=== PATIENT | female | born 1945 | race Caucasian/White ===

== ENCOUNTER 2017-01-10 22:38 | Emergency (ER) | payer BC, MEDICARE ==
[~2017-01-10] VITALS: Ht 167.6 cm; Wt 67.1 kg
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
--- NOTE | 2017-01-10 22:50 | NUR ---
ZHENG MURILLO DO AT BED SIDE FOR EVAL
[2017-01-10 23:17] LABS: BASOPHILS # (AUTO) 0.1 /CMM (0.0-0.2); BASOPHILS % (AUTO) 0.9 % (0.0-2.0); EOSINOPHILS # (AUTO) 0.2 /CMM (0.0-0.7); EOSINOPHILS % (AUTO) 2.7 % (0.0-6.0); HEMATOCRIT 38 % (33-45); HEMOGLOBIN 12.6 g/dL (11.5-14.8); LYMPHOCYTES # (AUTO) 2.2 /CMM (0.8-4.8); LYMPHOCYTES % (AUTO) 30.1 % (20.0-44.0); MEAN CORPUSCULAR HEMOGLOBIN 29 PG (26.0-33.0); MEAN CORPUSCULAR HGB CONC 33 g/dl (31.0-36.0); MEAN CORPUSCULAR VOLUME 89 fL (82-100); MONOCYTES # (AUTO) 0.7 /CMM (0.1-1.30); MONOCYTES % (AUTO) 9.8 % (2.0-12.0); NEUTROPHILS # (AUTO) 4.1 /CMM (1.8-8.9); NEUTROPHILS % (AUTO) 56.5 % (43.0-81.0); PLATELET COUNT (AUTO) 344 /CMM (150-450); RDW COEFFICIENT OF VARIATION 15.8 (11.5-15.0); RED BLOOD CELL COUNT(AUTO) 4.31 MIL/uL (4.0-5.2); WHITE BLOOD COUNT (AUTO) 7.2 K/uL (4.3-11.0)
[2017-01-10 23:26] LABS: CALCIUM, SERUM 8.6 mg/dL (8.5-10.1); CARBON DIOXIDE 30 mmol/L (21-32); CHLORIDE 104 mmol/L (98-107); CREATININE 0.7 mg/dL (0.6-1.3); GLUCOSE 108 mg/dL (74-106); SODIUM SERUM 139 mmol/L (136-145); UREA NITROGEN, BLOOD 16 mg/dL (7-18)
[2017-01-10 23:29] LABS: INR 0.95 (0.87-1.13); PROTHROMBIN TIME 10.1 SECS (9.5-12.7)
[2017-01-10 23:33] LABS: TROPONIN I < 0.017 ng/mL (0.00-0.056)
[2017-01-11 00:10] VITALS: BP 129/96
--- NOTE | 2017-01-11 00:11 | NUR ---
Patient discharged to home in stable condition. Written and verbal after care instructions given. Patient verbalizes understanding of instruction.IV removed. Catheter intact and site benign. Pressure and 4x4 applied to site. No bleeding noted. PT ambulatory with a steady gait VITAL SIGNS WITHIN NORMAL LIMITS.
== END 2017-01-11 00:11 | disposition home or self-care (01) ==
LOC: ER 22:40
DX: R20.9 Unspecified disturbances of skin sensation (principal); R53.1 Weakness; G25.81 Restless legs syndrome; M79.7 Fibromyalgia; Z88.5 Allergy status to narcotic agent
CPT/HCPCS: 36415; 71010; 80048; 84484; 85025; 85730; 93005; 99285; A4606; Z7610

== ENCOUNTER 2022-11-21 15:14 | Emergency (ER) | payer MEDICARE ==
[~2022-11-21] VITALS: Ht 167.6 cm; Wt 57.2 kg
--- NOTE | 2022-11-21 15:46 | NUR ---
The patient is presented to ER for L flank pain x 5 days s/p fall, states got dizzy standing up. no loc. Rates pain 7/10. In room air and denies SOB. Respiration regular and unlabored. The patient is attached to the monitor. Warm blanket provided for comfort. Will continue to monitor the patient.
[2022-11-21] MEDS ORDERED: IV NS 0.9% 1,000 ML BAG IV ONE (16:00)
[2022-11-21 16:27] LABS: BASOPHILS % (AUTO) 0.8 % (0.0-2.0); EOSINOPHILS % (AUTO) 3.6 % (0.0-6.0); HEMATOCRIT 43 % (33-45); LYMPHOCYTES # (AUTO) 1.3 K/uL (0.8-4.8); LYMPHOCYTES % (AUTO) 25.4 % (20.0-44.0); MEAN CORPUSCULAR HGB CONC 32 g/dl (31.0-36.0); MEAN CORPUSCULAR VOLUME 93 fL (82-100); MONOCYTES # (AUTO) 0.5 K/uL (0.1-1.30); MONOCYTES % (AUTO) 10.8 % (2.0-12.0); NEUTROPHILS % (AUTO) 59.4 % (43.0-81.0); PLATELET COUNT (AUTO) 342 K/uL (150-450); RED BLOOD CELL COUNT(AUTO) 4.64 MIL/uL (4.0-5.2); WHITE BLOOD COUNT (AUTO) 5.1 K/uL (4.3-11.0)
[2022-11-21 16:38] LABS: CALCIUM, SERUM 9.7 mg/dL (8.5-10.1); CARBON DIOXIDE 31 mmol/L (21-32); CHLORIDE 105 mmol/L (98-107); CREATININE 0.7 mg/dL (0.6-1.3); GLUCOSE 102 mg/dL (74-106); POTASSIUM 4.1 mmol/L (3.5-5.1); SODIUM SERUM 141 mmol/L (136-145); UREA NITROGEN, BLOOD 14 mg/dL (7-18)
--- NOTE | 2022-11-21 17:17 | NUR ---
URINE SAMPLE COLLECTED AND SENT TO LAB
[2022-11-21] MEDS ORDERED: IV NS 0.9% 250 ML IV ONE (18:21)
[2022-11-21] MEDS ORDERED: IOHEXOL-300 100 ML VIAL IV ONE (18:21)
[2022-11-21] MEDS ORDERED: CT SWABBABLE VALVE TRANS SET 1 EA INFUS.SET MC ONE (18:21)
[2022-11-21] MEDS ORDERED: LIDO30AD10 TP (20:33)
[2022-11-21 21:01] VITALS: BP 131/89
--- NOTE | 2022-11-21 21:02 | NUR ---
Patient discharged to home in stable condition. Written and verbal after care instructions given. Patient verbalizes understanding of instruction.IV removed. Catheter intact and site benign. Pressure and 4x4 applied to site. No bleeding noted.
== END 2022-11-21 21:02 | disposition home or self-care (01) ==
LOC: ER 15:19
DX: S20.212A Contusion of left front wall of thorax, initial encounter (principal); R42 Dizziness and giddiness; G93.89 Other specified disorders of brain; W18.30XA Fall on same level, unspecified, initial encounter; Z79.899 Other long term (current) drug therapy; Z88.5 Allergy status to narcotic agent; Z88.1 Allergy status to other antibiotic agents; Y93.89 Activity, other specified; Y92.89 Other specified places as the place of occurrence of the external cause; Y99.8 Other external cause status
CPT/HCPCS: 99285; 71260; 96360; 93005; 70450; 74177; 85025; 80048; 83735; 36415; 84484; J7030; J7050; Q9967

== ENCOUNTER 2024-07-06 19:55 | Emergency (ER) | payer MEDICARE ==
[~2024-07-06] VITALS: Ht 167.6 cm; Wt 54.4 kg
[~2024-07-06 19:55] MED LIST: LIDO30AD10 TP
[2024-07-06] MEDS ORDERED: IBUP-1957 PO (22:22)
[2024-07-06] MEDS: IBUPROFEN 400 MG TABLET PO ONE (22:50)
[2024-07-06 22:52] VITALS: BP 145/95; TEMP 98.3; O2SAT 97
== END 2024-07-06 22:45 | disposition home or self-care (01) ==
LOC: ER 20:02
DX: M48.54XA Collapsed vertebra, not elsewhere classified, thoracic region, initial encounter for fracture (principal); S39.012A Strain of muscle, fascia and tendon of lower back, initial encounter; S20.219A Contusion of unspecified front wall of thorax, initial encounter; M79.7 Fibromyalgia; G25.81 Restless legs syndrome; Z88.5 Allergy status to narcotic agent; Z79.1 Long term (current) use of non-steroidal anti-inflammatories (NSAID); V43.52XA Car driver injured in collision with other type car in traffic accident, initial encounter; Y93.89 Activity, other specified; Y92.410 Unspecified street and highway as the place of occurrence of the external cause; Y99.8 Other external cause status
CPT/HCPCS: 71045-TC; 72100-TC

== ENCOUNTER 2025-01-16 14:15 | Inpatient (IN) | payer MEDICARE, OTHER ==
[~2025-01-16] VITALS: Ht 167.6 cm; Wt 59.5 kg
[~2025-01-16 14:15] MED LIST changes: +IBUP-1957 PO
[2025-01-16] MEDS ORDERED: KETOROLAC TROMETHAMINE 15 MG/ML VIAL ONE (14:41)
[2025-01-16] MEDS ORDERED: ONDANSETRON HCL/PF 4 MG/2 ML VIAL ONE (14:41)
[2025-01-16] MEDS: IV NS 0.9% 1,000 ML BAG IV ONE (14:56)
[2025-01-16 14:57] LABS: PLATELET COUNT (AUTO) 427 K/uL (150-450); RED BLOOD CELL COUNT(AUTO) 4.63 MIL/uL (4.0-5.2); RED CELL DISTRIBUTION WIDTH 15.3 % (11.5-15.0); WHITE BLOOD COUNT (AUTO) 8.8 K/uL (4.3-11.0)
[2025-01-16] MEDS: KETOROLAC TROMETHAMINE 15 MG/ML VIAL IV ONE (14:57)
[2025-01-16] MEDS: ONDANSETRON HCL/PF 4 MG/2 ML VIAL IVP ONE (14:58)
[2025-01-16 15:09] LABS: ASPARTATE AMINOTRANSFERASE 12.0 U/L (15-37); CALCIUM, SERUM 9.1 mg/dL (8.5-10.1); CREATININE 0.8 mg/dL (0.6-1.3); SODIUM SERUM 133.0 mmol/L (136-145); TOTAL PROTEIN, SERUM 6.8 g/dL (6.4-8.2); UREA NITROGEN, BLOOD 14.0 mg/dL (7-18)
[2025-01-16 15:10] LABS: INR 1.04 (0.91-1.10)
[2025-01-16 15:11] LABS: APPEARANCE,URINE CLEAR (CLEAR); BLOOD, URINE NEGATIVE Ery/uL (NEGATIVE); LEUKOCYTE ESTERASE ,URINE 1+ (NEGATIVE); NITRITE, URINE NEGATIVE (NEGATIVE); UGLUCOSE NEGATIVE (NEGATIVE)
[2025-01-16] MEDS ORDERED: IV NS 0.9% 250 ML IV ONE (15:15)
[2025-01-16] MEDS ORDERED: IOHEXOL-300 100 ML VIAL IV ONE (15:15)
[2025-01-16 15:16] LABS: SQUAMOUS EPITHELIAL CELL,UR Many /HPF (None Seen)
[2025-01-16 15:18] LABS: ADD URINE CULTURE YES
[2025-01-16] MEDS: CEFTRIAXONE 1GM BAG (ER ONLY) 1 GM/50 ML PIGGYBACK IV ONE (16:00)
[2025-01-16] MEDS ORDERED: CEFTRIAXONE 1GM BAG (ER ONLY) 50 ML IV ONE (16:53)
[2025-01-16 19:50] VITALS: BP 105/92; TEMP 97.3; O2SAT 100
[2025-01-16] MEDS ORDERED: MORPHINE SULFATE INJ 2 MG/ML DISP.SYRIN IV PRN (20:30)
[2025-01-16] MEDS ORDERED: MAGNESIUM HYDROXIDE 30 ML UDC PO PRN (20:30)
[2025-01-17] MEDS: IV NS 0.9% 1,000 ML IV PRN (01:17)
[2025-01-17] MEDS: KETOROLAC TROMETHAMINE 15 MG/ML VIAL IV ONE (05:57)
[2025-01-17 06:44] LABS: PLATELET COUNT (AUTO) 359 K/uL (150-450); RED BLOOD CELL COUNT(AUTO) 3.71 MIL/uL (4.0-5.2); RED CELL DISTRIBUTION WIDTH 14.6 % (11.5-15.0); WHITE BLOOD COUNT (AUTO) 7.2 K/uL (4.3-11.0)
[2025-01-17 07:17] LABS: CALCIUM, SERUM 8.3 mg/dL (8.5-10.1); CREATININE 0.7 mg/dL (0.6-1.3); PHOSPHORUS 3.5 mg/dL (2.5-4.9); SODIUM SERUM 136.0 mmol/L (136-145); UREA NITROGEN, BLOOD 9.0 mg/dL (7-18)
[2025-01-17 08:00] VITALS: BP 97/52; TEMP 97.7; O2SAT 95
[2025-01-17] MEDS: KETOROLAC TROMETHAMINE INJ 30 MG/ML VIAL IM PRN (14:21)
[2025-01-17 16:00] VITALS: BP 112/52; TEMP 97.5; O2SAT 96
[2025-01-17] MEDS: PEG 3350/NA SULF,BICARB,CL/KCL 4,000 ML BOTTLE PO ONE (17:57)
[2025-01-17 18:12] LABS: OCCULT BLOOD STOOL NEGATIVE (NEGATIVE)
[2025-01-17 20:00] VITALS: BP 130/54; TEMP 97.5; O2SAT 99
[2025-01-17 20:24] LABS: IRON, SERUM 18.0 ug/dl (50-175)
[2025-01-18 06:49] LABS: PLATELET COUNT (AUTO) 374 K/uL (150-450); RED BLOOD CELL COUNT(AUTO) 3.80 MIL/uL (4.0-5.2); RED CELL DISTRIBUTION WIDTH 14.9 % (11.5-15.0); WHITE BLOOD COUNT (AUTO) 5.3 K/uL (4.3-11.0)
[2025-01-18 07:00] VITALS: BP 106/69; TEMP 97.5; O2SAT 100
[2025-01-18] MEDS: ACETAMINOPHEN 325 MG TABLET PO PRN (08:32)
[2025-01-18 10:41] VITALS: BP 106/69; TEMP 97.5; O2SAT 100
[2025-01-18] MEDS ORDERED: ANESTHESIA TRAY IN PYXIS 1 EA TRAY MC ONE (15:12)
[2025-01-18 16:00] VITALS: BP 120/63; TEMP 97.3; O2SAT 95
[2025-01-18 20:46] VITALS: BP 125/55; TEMP 97.5; O2SAT 95
[2025-01-19 06:12] LABS: FOLIC ACID 4.2 ng/mL (>3.0); FREE KAPPA LT CHAINS SERUM 30.6 mg/L (3.3-19.4); FREE LAMBDA LT CHAIN SERUM 23.9 mg/L (5.7-26.3); IMMUNOGLOBULIN A, SERUM 202 mg/dL (64-422); IMMUNOGLOBULIN M, SERUM 45 mg/dL (26-217); KAPPA/LAMBDA RATIO SERUM 1.28 (0.26-1.65)
[2025-01-19 06:39] LABS: PLATELET COUNT (AUTO) 400 K/uL (150-450); RED BLOOD CELL COUNT(AUTO) 3.83 MIL/uL (4.0-5.2); RED CELL DISTRIBUTION WIDTH 14.4 % (11.5-15.0); WHITE BLOOD COUNT (AUTO) 5.9 K/uL (4.3-11.0)
[2025-01-19 07:07] LABS: CARCINOEMBRYONIC ANTIGEN (CEA) 3.3 ng/mL (0.0-4.7)
[2025-01-19 07:49] LABS: CALCIUM, SERUM 8.5 mg/dL (8.5-10.1); CREATININE 0.5 mg/dL (0.6-1.3); SODIUM SERUM 139.0 mmol/L (136-145); UREA NITROGEN, BLOOD 5.0 mg/dL (7-18)
[2025-01-19 08:00] VITALS: BP 110/56; TEMP 98.6; O2SAT 96
[2025-01-19] MEDS ORDERED: IOHEXOL-300 100 ML VIAL IV ONE (11:45)
[2025-01-19] MEDS ORDERED: CT SWABBABLE VALVE TRANS SET 1 EA INFUS.SET MC ONE (11:45)
[2025-01-19] MEDS ORDERED: IV NS 0.9% 250 ML IV ONE (11:45)
[2025-01-19] MEDS: KETOROLAC TROMETHAMINE INJ 30 MG/ML VIAL IV PRN (13:43)
[2025-01-19] MEDS: SOD FERRIC GLUC 125 MG in IV NS 0.9% 100 ML IV SCH (14:32)
[2025-01-19 16:00] VITALS: BP 119/54; TEMP 97.9; O2SAT 96
[2025-01-19 20:00] VITALS: BP 124/63; TEMP 98.1; O2SAT 97
[2025-01-20 07:09] LABS: *SPE A/G RATIO 0.9 (0.7-1.7); *SPE ALBUMIN 2.5 g/dL (2.9-4.4); *SPE ALPHA-1-GLOBULIN 0.4 g/dL (0.0-0.4); *SPE ALPHA-2-GLOBULIN 1.0 g/dL (0.4-1.0); *SPE BETA GLOBULIN 0.9 g/dL (0.7-1.3); *SPE GLOBULIN, TOTAL 2.7 g/dL (2.2-3.9); *SPE M-SPIKE Not Observed g/dL (Not Observed); *SPE PROTEIN TOTAL 5.2 g/dL (6.0-8.5); *SPEGAMMA GLOBULIN 0.5 g/dL (0.4-1.8)
[2025-01-20 07:36] LABS: PLATELET COUNT (AUTO) 408 K/uL (150-450); RED BLOOD CELL COUNT(AUTO) 4.31 MIL/uL (4.0-5.2); RED CELL DISTRIBUTION WIDTH 14.7 % (11.5-15.0); WHITE BLOOD COUNT (AUTO) 5.4 K/uL (4.3-11.0)
[2025-01-20 07:51] LABS: CALCIUM, SERUM 8.6 mg/dL (8.5-10.1); CREATININE 0.7 mg/dL (0.6-1.3); SODIUM SERUM 140.0 mmol/L (136-145); UREA NITROGEN, BLOOD 4.0 mg/dL (7-18)
[2025-01-20 08:00] VITALS: BP 113/67; TEMP 98.1; O2SAT 98
[2025-01-20 16:00] VITALS: BP 121/71; TEMP 98.2; O2SAT 99
[2025-01-20 20:00] VITALS: BP 133/61; TEMP 98.4; O2SAT 95
[2025-01-21 07:51] LABS: PLATELET COUNT (AUTO) 385 K/uL (150-450); RED BLOOD CELL COUNT(AUTO) 3.89 MIL/uL (4.0-5.2); RED CELL DISTRIBUTION WIDTH 14.8 % (11.5-15.0); WHITE BLOOD COUNT (AUTO) 6.2 K/uL (4.3-11.0)
[2025-01-21 07:52] LABS: INR 1.08 (0.91-1.10)
[2025-01-21 08:00] VITALS: BP 132/66; TEMP 98.1; O2SAT 94
[2025-01-21] MEDS ORDERED: FENTANYL PF 250MCG/5ML AMPUL ONE (08:16)
[2025-01-21] MEDS ORDERED: ROCURONIUM BROMIDE 50 MG/5 ML ONE (08:16)
[2025-01-21] MEDS ORDERED: SUCCINYLCHOLINE CHLORIDE 20 MG/ML VIAL ONE (08:17)
[2025-01-21] MEDS ORDERED: ROPIVACAINE HCL 0.5% 5 MG/ML 30ML VIAL ONE (08:20)
[2025-01-21 09:01] LABS: CALCIUM, SERUM 8.5 mg/dL (8.5-10.1); CREATININE 0.7 mg/dL (0.6-1.3); PHOSPHORUS 3.1 mg/dL (2.5-4.9); SODIUM SERUM 143.0 mmol/L (136-145); UREA NITROGEN, BLOOD 4.0 mg/dL (7-18)
[2025-01-21] MEDS: ZOSYN IVPB 3.375 G in IV D5W 50ml IV ONE (10:00)
[2025-01-21] MEDS ORDERED: METOCLOPRAMIDE HCL 10 MG/2 ML VIAL IV PRN (11:00)
[2025-01-21] MEDS ORDERED: MEPERIDINE HCL/PF 50 MG/ML DISP.SYRIN IV PRN (11:00)
[2025-01-21] MEDS ORDERED: HYDROMORPHONE INJ 2 MG/ML DISP.SYRIN ONE (11:48)
[2025-01-21] MEDS ORDERED: ONDANSETRON HCL/PF 4 MG/2 ML VIAL IV PRN (12:00)
[2025-01-21] MEDS ORDERED: HYDROMORPHONE 1 MG/1 ML DISP.SYRIN IV PRN (12:00)
[2025-01-21] MEDS ORDERED: MEPERIDINE25 MG SYR 25 MG/ML VIAL ONE (12:15)
[2025-01-21] MEDS ORDERED: FENTANYL PF 100MCG/2ML AMPUL IV PRN (12:30)
[2025-01-21] MEDS ORDERED: ANESTHESIA TRAY IN PYXIS 1 EA TRAY MC ONE (13:04)
[2025-01-21] MEDS: LIDOCAINE 5% (PATCH) 1 EA PATCH TP SCH (14:19)
[2025-01-21 16:00] VITALS: BP 103/52; TEMP 98.4; O2SAT 97
[2025-01-21] MEDS: METHOCARBAMOL (500MG) 500 MG TABLET PO SCH (18:05)
[2025-01-21] MEDS: IV D5/ 0.9% NACL 1,000 ML IV PRN (19:39)
[2025-01-21 20:00] VITALS: BP_SYST 105; BP_SYST 143; BP_DIAS 64; BP_DIAS 71; TEMP 97.5; TEMP 98.1; O2SAT 98
[2025-01-21 20:43] VITALS: BP 105/64; TEMP 97.5; O2SAT 98
[2025-01-22] MEDS: HYDROMORPHONE INJ 2 MG/ML DISP.SYRIN IV PRN (03:17)
[2025-01-22 08:12] VITALS: BP 104/48; TEMP 97.5; O2SAT 100
[2025-01-22 08:27] LABS: PLATELET COUNT (AUTO) 427 K/uL (150-450); RED BLOOD CELL COUNT(AUTO) 4.45 MIL/uL (4.0-5.2); RED CELL DISTRIBUTION WIDTH 15.3 % (11.5-15.0); WHITE BLOOD COUNT (AUTO) 13.0 K/uL (4.3-11.0)
[2025-01-22] MEDS: CLOTRIMAZOLE 1% 15 GM TUBE TP SCH (10:27)
[2025-01-22 10:35] LABS: CALCIUM, SERUM 8.4 mg/dL (8.5-10.1); CREATININE 0.9 mg/dL (0.6-1.3); PHOSPHORUS 3.2 mg/dL (2.5-4.9); SODIUM SERUM 142.0 mmol/L (136-145); UREA NITROGEN, BLOOD 5.0 mg/dL (7-18)
[2025-01-22 16:15] VITALS: BP 142/68; TEMP 99.5; O2SAT 100
[2025-01-22] MEDS: ENOXAPARIN SODIUM 40 MG/0.4 ML DISP.SYRIN SQ SCH (20:00)
[2025-01-22 20:11] VITALS: BP 107/59; TEMP 98.2; O2SAT 98
[2025-01-22] MEDS: HYDROCODONE/APAP 10/325MG TABLET PO PRN (22:10)
[2025-01-23 06:31] LABS: PLATELET COUNT (AUTO) 388 K/uL (150-450); RED BLOOD CELL COUNT(AUTO) 3.92 MIL/uL (4.0-5.2); RED CELL DISTRIBUTION WIDTH 14.8 % (11.5-15.0); WHITE BLOOD COUNT (AUTO) 10.1 K/uL (4.3-11.0)
[2025-01-23 07:22] LABS: CALCIUM, SERUM 8.3 mg/dL (8.5-10.1); CREATININE 0.7 mg/dL (0.6-1.3); SODIUM SERUM 134.0 mmol/L (136-145); UREA NITROGEN, BLOOD 5.0 mg/dL (7-18)
[2025-01-23 07:30] VITALS: BP 148/77; TEMP 98.4; O2SAT 99
[2025-01-23] MEDS: HYDROCODONE/APAP 5/325MG TABLET PO PRN (08:58)
[2025-01-23] MEDS: POTASSIUM CHLORIDE 20 MEQ POWDER PACKET PO ONE (11:18)
[2025-01-23 15:47] VITALS: BP 124/62; TEMP 97.5; O2SAT 98
[2025-01-23 16:00] VITALS: BP 124/62; TEMP 97.2; O2SAT 98
[2025-01-23 20:00] VITALS: BP 143/79; TEMP 97.7; O2SAT 95
[2025-01-24] MEDS: ONDANSETRON HCL/PF 4 MG/2 ML VIAL IVP PRN (01:12)
[2025-01-24 07:00] VITALS: BP 120/69; TEMP 98.1; O2SAT 97
[2025-01-24 07:11] LABS: PLATELET COUNT (AUTO) 418 K/uL (150-450); RED BLOOD CELL COUNT(AUTO) 4.06 MIL/uL (4.0-5.2); RED CELL DISTRIBUTION WIDTH 15.6 % (11.5-15.0); WHITE BLOOD COUNT (AUTO) 8.1 K/uL (4.3-11.0)
[2025-01-24 07:26] LABS: CALCIUM, SERUM 8.4 mg/dL (8.5-10.1); CREATININE 0.6 mg/dL (0.6-1.3); SODIUM SERUM 137.0 mmol/L (136-145); UREA NITROGEN, BLOOD 3.0 mg/dL (7-18)
[2025-01-24 07:55] VITALS: BP 120/69; TEMP 98.1; O2SAT 97
[2025-01-24 16:00] VITALS: BP 125/60; TEMP 97.9; O2SAT 96
[2025-01-24 20:00] VITALS: BP 124/58; TEMP 98.1; O2SAT 97
[2025-01-24] MEDS: MAG HYDROX/AL HYDROX/SIMETH 30 ML UDC PO PRN (23:56)
[2025-01-25 07:05] LABS: PLATELET COUNT (AUTO) 460 K/uL (150-450); RED BLOOD CELL COUNT(AUTO) 4.29 MIL/uL (4.0-5.2); RED CELL DISTRIBUTION WIDTH 15.4 % (11.5-15.0); WHITE BLOOD COUNT (AUTO) 5.4 K/uL (4.3-11.0)
[2025-01-25 07:09] LABS: CALCIUM, SERUM 8.3 mg/dL (8.5-10.1); CREATININE 0.5 mg/dL (0.6-1.3); SODIUM SERUM 138.0 mmol/L (136-145); UREA NITROGEN, BLOOD 4.0 mg/dL (7-18)
[2025-01-25 08:00] VITALS: BP 152/83; TEMP 99; O2SAT 95
[2025-01-25 16:00] VITALS: BP 129/94; TEMP 98.1; O2SAT 93
[2025-01-25 20:00] VITALS: BP 133/89; TEMP 97.9; O2SAT 97
[2025-01-25 21:39] VITALS: BP 133/89; TEMP 97.9; O2SAT 97
[2025-01-26 07:30] VITALS: BP 123/68; TEMP 98.4; O2SAT 93
[2025-01-26 07:38] LABS: PLATELET COUNT (AUTO) 416 K/uL (150-450); RED BLOOD CELL COUNT(AUTO) 4.02 MIL/uL (4.0-5.2); RED CELL DISTRIBUTION WIDTH 15.4 % (11.5-15.0); WHITE BLOOD COUNT (AUTO) 5.2 K/uL (4.3-11.0)
[2025-01-26 08:00] VITALS: BP 123/68; TEMP 98.4; O2SAT 93
[2025-01-26 08:03] LABS: CALCIUM, SERUM 7.8 mg/dL (8.5-10.1); CREATININE 0.5 mg/dL (0.6-1.3); SODIUM SERUM 139.0 mmol/L (136-145); UREA NITROGEN, BLOOD 6.0 mg/dL (7-18)
[2025-01-26 08:28] LABS: IRON, SERUM 21 ug/dl (50-175)
[2025-01-26 16:00] VITALS: BP 136/73; TEMP 98.1; O2SAT 93
[2025-01-26 16:25] VITALS: BP 136/73; TEMP 98.1; O2SAT 93
[2025-01-26 20:00] VITALS: BP 129/47; TEMP 97.3; O2SAT 95
[2025-01-26] MEDS: SIMETHICONE 80 MG TAB.CHEW PO PRN (20:22)
[2025-01-27 07:45] LABS: PLATELET COUNT (AUTO) 360 K/uL (150-450); RED BLOOD CELL COUNT(AUTO) 3.83 MIL/uL (4.0-5.2); RED CELL DISTRIBUTION WIDTH 15.3 % (11.5-15.0); WHITE BLOOD COUNT (AUTO) 6.0 K/uL (4.3-11.0)
[2025-01-27 08:00] VITALS: BP 132/69; TEMP 97.7; O2SAT 96
[2025-01-27 08:06] LABS: CALCIUM, SERUM 7.7 mg/dL (8.5-10.1); CREATININE 0.5 mg/dL (0.6-1.3); SODIUM SERUM 137.0 mmol/L (136-145); UREA NITROGEN, BLOOD 5.0 mg/dL (7-18)
[2025-01-27 16:00] VITALS: BP 130/75; TEMP 98.6; O2SAT 95
[2025-01-27 20:00] VITALS: BP 122/71; TEMP 98.1; O2SAT 95
[2025-01-28 07:54] LABS: CALCIUM, SERUM 7.9 mg/dL (8.5-10.1); CREATININE 0.5 mg/dL (0.6-1.3); SODIUM SERUM 137.0 mmol/L (136-145); UREA NITROGEN, BLOOD 4.0 mg/dL (7-18)
[2025-01-28 08:13] LABS: PLATELET COUNT (AUTO) 375 K/uL (150-450); RED BLOOD CELL COUNT(AUTO) 3.90 MIL/uL (4.0-5.2); RED CELL DISTRIBUTION WIDTH 15.8 % (11.5-15.0); WHITE BLOOD COUNT (AUTO) 7.4 K/uL (4.3-11.0)
[2025-01-28 08:24] VITALS: BP 118/77; TEMP 98; O2SAT 96
[2025-01-28 16:13] VITALS: BP 125/63; TEMP 98.2; O2SAT 96
[2025-01-28 20:42] VITALS: BP 110/97; TEMP 99; O2SAT 96
[2025-01-29 06:58] LABS: CALCIUM, SERUM 8.1 mg/dL (8.5-10.1); CREATININE 0.5 mg/dL (0.6-1.3); SODIUM SERUM 137.0 mmol/L (136-145); UREA NITROGEN, BLOOD 4.0 mg/dL (7-18)
[2025-01-29 07:30] LABS: PLATELET COUNT (AUTO) 379 K/uL (150-450); RED BLOOD CELL COUNT(AUTO) 3.79 MIL/uL (4.0-5.2); RED CELL DISTRIBUTION WIDTH 15.4 % (11.5-15.0); WHITE BLOOD COUNT (AUTO) 6.4 K/uL (4.3-11.0)
[2025-01-29 08:00] VITALS: BP 140/68; TEMP 98.1; O2SAT 96
[2025-01-29] MEDS: Z GUARD REMEDY 4 OZ OINT TP PRN (08:22)
[2025-01-29] MEDS ORDERED: LIDO30AD10 TP (09:45)
[2025-01-29] MEDS ORDERED: ENOX40DI SQ (09:45)
[2025-01-29] MEDS ORDERED: METH500T6 PO (09:45)
== END 2025-01-29 15:47 | DRG 330 ==
LOC: ER 14:18 → MED 17:34
PROVIDERS: ADMIT Internal Medicine; ATTEND Internal Medicine
PROC: 0DBK8ZX Excision of Ascending Colon, Via Natural or Artificial Opening Endoscopic, Diagnostic (ICD-10-PCS; principal; 2025-01-18 18:00)
PROC: 0D1B0ZL Bypass Ileum to Transverse Colon, Open Approach (ICD-10-PCS; 2025-01-21)
PROC: 0DX Gastrointestinal System, Transfer (ICD-10-PCS; 2025-01-21)
PROC: 0T768DZ Dilation of Right Ureter with Intraluminal Device, Via Natural or Artificial Opening Endoscopic (ICD-10-PCS; 2025-01-21 09:20)
PROC: 0DTF0ZZ Resection of Right Large Intestine, Open Approach (ICD-10-PCS; 2025-01-22)
PROC: 0DBU0ZZ Excision of Omentum, Open Approach (ICD-10-PCS; 2025-01-22)
DX: C18.2 Malignant neoplasm of ascending colon (principal); E44.0 Moderate protein-calorie malnutrition; N39.0 Urinary tract infection, site not specified; E87.1 Hypo-osmolality and hyponatremia; K56.50 Intestinal adhesions [bands], unspecified as to partial versus complete obstruction; K56.7 Ileus, unspecified; M79.7 Fibromyalgia; R10.9 Unspecified abdominal pain; D64.9 Anemia, unspecified; E86.1 Hypovolemia; K57.30 Diverticulosis of large intestine without perforation or abscess without bleeding; E88.09 Other disorders of plasma-protein metabolism, not elsewhere classified; B96.89 Other specified bacterial agents as the cause of diseases classified elsewhere; R59.0 Localized enlarged lymph nodes; Z68.21 Body mass index [BMI] 21.0-21.9, adult; I08.0 Rheumatic disorders of both mitral and aortic valves; K40.90 Unilateral inguinal hernia, without obstruction or gangrene, not specified as recurrent; K59.00 Constipation, unspecified
CPT/HCPCS: 36415; 71045-TC; 71260-TC; 74018; 80048-TC; 80076-TC; 81001; 82272-TC; 82378; 82607-TC; 82728-TC; 82784; 82962-TC; 83540-TC; 83690-TC; 83735-TC; 84100-TC; 84155; 84165; 84443-TC; 85025-TC; 85610-TC; 85730-TC; 86334; 86850-TC; 87086-TC; 88305-TC; 93307-TC; 97110-TC; 97116-TC; 97530-TC; 97535-TC; A4217; A4223; A6253; C1769; G0378; J0330; J0696; J1100; J1171; J1200; J1650; J1885; J2175; J2405; J2543; J2704; J2765; J2795; J2916; J3010; J3490; J7030; J7042; J7050; J7060; Q9967